=== PATIENT | female | born 1965 | race Caucasian/White ===

== ENCOUNTER 2024-08-10 18:06 | Observation (INO) ==
[2024-08-10 18:43] LABS: ABS Lymphocytes 1.9 10^3/uL (1.0-4.8); ABS Monocytes 0.7 10^3/uL (0.0-0.9); ABS Neutrophils 4.9 10^3/uL (1.5-7.6); Eosinophil % 0.5 %; Hematocrit 35.9 % (35-45); Hemoglobin 12.4 g/dL (11.5-14.3); Lymphocyte % 25.4 %; Mean Corpuscular Hemoglobin 29.2 pg (27-33); Mean Corpuscular Hgb Conc 34.5 g/dL (31-36); Mean Corpuscular Volume 84.6 fL (80-97); Mean Platelet Volume 9.3 fL (7.5-11.2); Platelet Count 172 10^3/uL (150-450); Red Blood Count 4.24 10^6/uL (3.63-4.92); Red Cell Distribution Width 14.5 % (12-17); White Blood Count 7.6 10^3/uL (3.8-11.8)
[2024-08-10 18:55] LABS: INR 1.15 (0.85-1.14)
[2024-08-10 19:20] LABS: Albumin 4.2 g/dL (3.5-5.7); Albumin/Globulin Ratio 1.3 (1-3); Calcium 9.7 mg/dL (8.6-10.3); Creatinine, Serum 1.54 mg/dL (0.51-0.95); Direct Bilirubin 0.1 mg/dL (0.03-0.18); Globulin 3.3 g/dL (2-4); HDL Cholesterol 31.9 mg/dL; Indirect Bilirubin 0.6 mg/dL (0.3-1.0); Potassium 4.1 mmol/L (3.5-5.0); Total Bilirubin 0.7 mg/dL (0.2-1.0); Total Protein 7.5 g/dL (6.4-8.9); eGFR CKD-EPI 38.4 (>60)
[2024-08-10] MEDS: Lactated Ringers 1000 ml BAG 1,000 ML IV ONE (20:37)
[2024-08-10] MEDS: Iodixanol 320 (CONTRAST) 100 ML SDV IV ONE (20:37)
[2024-08-10 21:12] LABS: Urine Appearance Clear; Urine Bilirubin Negative (Negative); Urine Blood Negative (Negative); Urine Color Yellow; Urine Glucose Negative (Negative); Urine Ketones Trace (Negative); Urine Nitrite Negative (Negative); Urine Protein 1+ (>=30 mg/dL) (Negative); Urine Specific Gravity 1.049 (1.002-1.030); Urine Urobilinogen 1+ (Negative)
[2024-08-10 21:17] LABS: Urine Bacteria Absent /HPF (Absent); Urine Red Blood Cell 2+(6-10/hpf) /HPF (0-Trace); Urine Squamous Epithelial Cell Present /HPF (Absent); Urine White Blood Cell 3+(>20/hpf) /HPF (0-Trace)
[2024-08-10] MEDS: cefTRIAXone 1 gm/50 mL D5W 1 GM/50 ML BAG IV ONE (21:56)
[2024-08-10] MEDS ORDERED: Sulfur Hexaflouride MICROSPHR 25 MG VIAL IV PRN (22:37)
[2024-08-11] MEDS: Lactated Ringers 1000 ml BAG 1,000 ML IV SCH (02:31)
[2024-08-11] MEDS ORDERED: Dextrose 50% Syringe 50 ml 25 GM/50 ML SYRINGE IV PUSH PRN (02:50)
[2024-08-11] MEDS: DULAGLUTIDE 4.5 MG/0.5 ML SUBCUT SCH (02:53)
[2024-08-11 07:41] LABS: ABS Eosinophils 0.1 10^3/uL (0.0-0.5); ABS Lymphocytes 1.8 10^3/uL (1.0-4.8); ABS Monocytes 0.7 10^3/uL (0.0-0.9); ABS Neutrophils 3.2 10^3/uL (1.5-7.6); ABS Nucleated RBC 0.01 10^3/ul; Hematocrit 33.8 % (35-45); Hemoglobin 11.7 g/dL (11.5-14.3); Lymphocyte % 31.3 %; Mean Corpuscular Hemoglobin 30.1 pg (27-33); Mean Corpuscular Hgb Conc 34.5 g/dL (31-36); Mean Corpuscular Volume 87.4 fL (80-97); Mean Platelet Volume 9.3 fL (7.5-11.2); Nucleated Red Blood Cells % 0.2 %/100WBC (0.0-0.8); Platelet Count 136 10^3/uL (150-450); Red Blood Count 3.87 10^6/uL (3.63-4.92); Red Cell Distribution Width 14.3 % (12-17); White Blood Count 5.7 10^3/uL (3.8-11.8)
[2024-08-11 08:37] LABS: Albumin 3.7 g/dL (3.5-5.7); Albumin/Globulin Ratio 1.2 (1-3); Creatinine, Serum 1.38 mg/dL (0.51-0.95); Globulin 3.2 g/dL (2-4); Potassium 4.4 mmol/L (3.5-5.0); Total Bilirubin 0.5 mg/dL (0.2-1.0); Total Protein 6.9 g/dL (6.4-8.9); eGFR CKD-EPI 43.8 (>60)
[2024-08-11] MEDS: Amoxicillin/Clavul 500/125 TAB (Augmentin 500 mg tab) PO SCH (09:30)
[2024-08-11] MEDS: Enoxaparin 40 MG/0.4 ML SYR SUBCUT SCH (09:30)
[2024-08-12] MEDS: Insulin GLARGINE 100 un/ml 10 ml VIAL SUBCUT SCH (08:16)
[2024-08-12 13:58] VITALS: BP 160/89
== END 2024-08-12 16:15 | disposition home or self-care (01) ==
LOC: EDHOLD 18:06 → ED 18:06 → MEDTELE 08-11 09:28
PROVIDERS: ADMIT Hospitalist; ATTEND Hospitalist